=== PATIENT | male | born 1945 | race Caucasian/White ===

== ENCOUNTER → 2019-05-22 | Outpatient (CLI) | payer MEDICARE ==
[2014-04-10 11:59] VITALS: BP 110/69
[~2019-05-22] MED LIST: AMLO5TAB10 PO; ASPI81TA50 PO; CRESTOR20 MG PO; LISI-130 PO; METO-239 PO; MULT-246 PO; OMEG-33 PO; PRAS10TA9 PO
--- NOTE | 2019-05-22 11:43 | CARD ---
MR#: [id number] Date of Study: 05/22/2019 Ordering Physician: TENISHA ALSTON, Referring Physician: TENISHA ALSTON, Tech: Riat Dale APPROVED REPORT EXAM: Two-dimensional and M-mode echocardiogram with Doppler and color Doppler. Other Information Quality : AverageHR: 80bpm Rhythm : Pacemaker INDICATION Arrhythmia Surgery/Intervention Pacemaker: Date: 2011 RISK FACTORS Hypertension Hyperlipidemia Diabetes Quit smoking a year ago 2D DIMENSIONS RVDd3.7 (2.9-3.5cm)Left Atrium(2D)4.2 (1.6-4.0cm) IVSd1.2 (0.7-1.1cm)Aortic Root(2D)3.9 (2.0-3.7cm) LVDd4.4 (3.9-5.9cm)LVOT Diameter2.3 (1.8-2.4cm) PWd1.0 (0.7-1.1cm)LVDs3.0 (2.5-4.0cm) FS (%) 32.7 %SV53.4 ml LVEF(%)61.3 (>50%) Aortic Valve AoV Peak Skyler.125.4cm/sAoV VTI27.5cm AO Peak GR.6.3mmHgLVOT Peak Skyler.87.8cm/s LVOT VTI 19.58cmAO Mean GR.4mmHg JOSÉ ANTONIO (VMAX)2.76ty5BJG (VTI)2.86cm2 Mitral Valve MV E Lvxnzczj46.2cm/sMV DECEL GLOP954cx MV A Mcaznkki07.2cm/sMV OOY44zv E/A Ratio0.7MVA (PHT)5.58cm2 TDI E/Lateral E'7.5E/Medial E'7.5 Pulmonary Valve PV Peak Ilxilzhd67.9cm/sPV Peak Grad.4mmHg Tricuspid Valve TR P. Dlylprpw515dl/sRAP [id number] TR Peak Gr.08ltDkKAMI85ryAk Pulmonary Vein S1 Ttuaiilw23.3cm/sD2 Pqxkhejc64.9cm/s PVa [id number] LEFT VENTRICLE The left ventricle is normal size. There is mild concentric left ventricular hypertrophy. The left ve ntricular systolic function is normal. The Ejection Fraction is 55-60%. There is normal LV segmental wall motion. Transmitral Doppler flow pattern is Grade I-abnormal relaxation pattern. RIGHT VENTRICLE The right ventricle is normal size. There is normal right ventricular wall thickness. The right ventr icular systolic function is normal. There is a pacemaker lead in the right ventricle. ATRIA The left atrium size is normal. The right atrium size is normal. There is a pacemaker lead seen in th e right atrium. The interatrial septum is intact with no evidence for an atrial septal defect or murdock nt foramen ovale as noted on 2-D or Doppler imaging. AORTIC VALVE The aortic valve is normal in structure and function. Doppler and Color Flow revealed no significant aortic regurgitation. There is no significant aortic valvular stenosis. MITRAL VALVE The mitral valve is normal in structure and function. There is no evidence of mitral valve prolapse. There is no mitral valve stenosis. Doppler and Color-flow revealed trace mitral regurgitation. TRICUSPID VALVE The tricuspid valve is normal in structure and function. Doppler and Color Flow revealed trace tricus pid regurgitation with an estimated PAP of 28 mmHg. There is no tricuspid valve stenosis. PULMONIC VALVE The pulmonary valve is normal in structure and function. Doppler and Color Flow revealed trace pulmon ic valvular regurgitation. GREAT VESSELS The aortic root is normal in size. The IVC is normal in size and collapses >50% with inspiration. PERICARDIAL EFFUSION There is no evidence of significant pericardial effusion. Critical Notification Critical Value: No <Conclusion> The left ventricular systolic function is normal. The Ejection Fraction is 55-60%. There is normal LV segmental wall motion. Transmitral Doppler flow pattern is Grade I-abnormal relaxation pattern. There is a pacemaker lead in the right ventricle. Trace mitral regurgitation. Trace tricuspid regurgitation with an estimated PAP of 28 mmHg. There is no evidence of significant pericardial effusion. Signed by : Tenisha Alston, Electronically Approved : 05/22/2019 11:43:32
== END | disposition home or self-care (01) ==
LOC: ECHO 07:37
PROVIDERS: ATTEND Internal Medicine Cardiovascular Disease
DX: I51.7 Cardiomegaly (principal); I49.5 Sick sinus syndrome; E78.5 Hyperlipidemia, unspecified; I48.91 Unspecified atrial fibrillation; Z87.891 Personal history of nicotine dependence; Z95.0 Presence of cardiac pacemaker
CPT/HCPCS: 93306